=== PATIENT | female | born 1955 | race Caucasian/White ===

== ENCOUNTER 2016-12-12 10:09 | Outpatient (CLI) | payer OTHER | END 2016-12-12 10:10 | disposition home or self-care (01) | DX: D47.3 Essential (hemorrhagic) thrombocythemia (principal); R53.83 Other fatigue ==

== ENCOUNTER 2018-05-12 08:11 | Outpatient (CLI) | payer OTHER ==
[2018-05-12 09:15] LABS: ALBUMIN 3.9 g/dL (3.2-5.5); ALBUMIN/GLOBULIN RATIO 1.2 (1.0-2.2); ALKALINE PHOSPHATASE 60 IU/L (42-121); ALT ALANINE AMINOTRANSFERASE 15 IU/L (10-60); AST ASPARTATE AMINOTRANSFERASE 19 IU/L (10-42); BILIRUBIN,TOTAL 0.5 mg/dL (0.2-1.0); BUN - BLOOD UREA NITROGEN 17 mg/dL (6-20); CALCIUM 8.7 mg/dL (8.5-10.3); CARBON DIOXIDE - CO2 27 mmol/L (21-32); CHLORIDE 102 mmol/L (101-111); CHOL/HDL RATIO 3.5 (<4.4); CHOLESTEROL 166 mg/dL; CREATININE 0.7 mg/dL (0.4-1.0); GFR - MDRD 85 (>89); GLUCOSE 92 mg/dL (70-100); HDL CHOLESTEROL 48 mg/dL; LDL CHOLESTEROL,CALCULATED 102 mg/dL; LDL/HDL RATIO 2.1 (<4.4); SODIUM 135 mmol/L (135-145); TOTAL PROTEIN 7.2 g/dL (6.7-8.2); VLDL CHOLESTEROL 16 mg/dL
[2018-05-12 09:17] LABS: CRP - C-REACTIVE PROTEIN < 1.0 mg/dL (0-1.0)
[2018-05-13 13:28] LABS: HEPATITIS C ANTIBODY NON-REACTIVE (NON-REACTIVE)
[2018-05-15 00:22] LABS: SOURCE BLOOD
== END 2018-05-12 08:12 | disposition home or self-care (01) ==
LOC: LAB 08:11
PROVIDERS: ATTEND Family Medicine
DX: Z00.00 Encounter for general adult medical examination without abnormal findings (principal); D47.3 Essential (hemorrhagic) thrombocythemia; Z11.59 Encounter for screening for other viral diseases; R53.83 Other fatigue; M19.90 Unspecified osteoarthritis, unspecified site; G62.9 Polyneuropathy, unspecified
CPT/HCPCS: 36415; 80053; 80061; 81206; 83721; 84443; 85651; 86140; 86803

== ENCOUNTER 2018-11-04 09:31 | Outpatient (CLI) | payer OTHER | END 2018-11-04 09:32 | disposition home or self-care (01) | LOC: LAB 09:31 | PROVIDERS: ATTEND Family Medicine | DX: D47.3 Essential (hemorrhagic) thrombocythemia (principal) | CPT/HCPCS: 81206 ==

== ENCOUNTER 2021-08-28 14:53 | Emergency (ER) | payer OTHER ==
--- NOTE | 2021-08-28 14:59 | ED Physician Documentation ---
PD HPI LOWER EXT INJURY - Stated complaint Stated Complaint: right ankle injury - History obtained from History obtained from: Patient - History of Present Illness PD HPI LOW EXT INJURY LOCATION: Right, Ankle Type of injury: Twist (She had been sitting at her computer for few hours and got up and felt like her leg was asleep and her ankle rolled inversion with pain laterally.) Where injury occurred: Home Timing - onset: How many hours ago (1), Today Timing - details: Abrupt onset, Still present (hurting for walking) Improved by: Rest Worsened by: Moving, Other (walking) Associated symptoms: Swelling (laterally). No: Weakness, Numbness Similar symptoms before: Has not had sx before (She has been having muscle cramps in her legs intermittently and some in her arms for the past few weeks. Seen by her primary care a week ago with basic blood tests showing slightly low potassium but otherwise normal.), Other (She has had muscle cramps in her legs intermittently the last few weeks mainly at rest or sleeping. No claudication with walking.) Recently seen: Clinic Review of Systems Skin: denies: Abrasion (s), Laceration (s) Neurologic: denies: Focal weakness, Numbness PD PAST MEDICAL HISTORY - Past Medical History Cardiovascular: None - Past Surgical History Past Surgical History: No - Present Medications Home Medications: Ambulatory Orders Medication Instructions Recorded Confirmed No Known Home Medications 08/28/21 08/28/21 - Allergies Allergies/Adverse Reactions: Allergies Allergy/AdvReac Type Severity Reaction Status Date / Time No Known Drug Allergies Allergy Verified 08/28/21 14:57 - Social History Does the pt smoke?: No Smoking Status: Never smoker Does the pt drink ETOH?: Yes Does the pt have substance abuse?: No - POLST Patient has POLST: No PD ED PE NORMAL - Vitals Vital signs reviewed: Yes - General General: Alert and oriented X 3, No acute distress, Well developed/nourished - Derm Derm: Normal color, Warm and dry - Extremities Extremities: Other (The right ankle shows tenderness along the lateral malleolus in the infra malleolar area. Medial is nontender. The Achilles is firm and intact. No gross laxity on inversion stress but does cause pain.) - Neuro Neuro: Alert and oriented X 3, No motor deficit, No sensory deficit, Normal speech Results - Vitals Vitals: Vital Signs - 24 hr 08/28/21 14:57 Temperature 36.5 C Heart Rate 80 Respiratory 16 Rate Blood Pressure 139/87 H O2 Saturation 97 Oxygen O2 Source Room air - Rads (name of study) right ankle Radiology: Prelim report reviewed (no fractures), See rad report PD MEDICAL DECISION MAKING - ED course Complexity details: reviewed results, d/w patient Departure - Departure Disposition: 01 Home, Self Care Clinical Impression: Ankle sprain Qualifiers: Encounter type: initial encounter Involved ligament of ankle: anterior talofibular ligament Laterality: right Qualified Code(s): S93.491A - Sprain of other ligament of right ankle, initial encounter Condition: Stable Record reviewed to determine appropriate education?: Yes Instructions: ED Sprain Ankle W X Ray Follow-Up: MEIR FARMER MD [Primary Care Provider] - Comments: Use the ankle brace when up and around for the next 2 to 3 weeks until fully healed. There are no fracture seen on x-ray. Your ankle can heal with the support and weightbearing as tolerated. Use the crutches initially for discomfort of weightbearing and progress weightbearing and activity as tolerated. This can take 2 to 4 weeks sometimes to fully heal up back to normal. Maintain some level of support of the ankle until it feels fully healed. Ice elevate and rest your ankle often today and tomorrow for swelling. Tylenol or ibuprofen as needed for pains. Recheck if not improving over the next week or so and steadily improved over several weeks until better.
[2021-08-28 15:00] VITALS: BP 139/87
--- NOTE | 2021-08-28 15:50 | XRAY Report ---
PROCEDURE: Ankle 3 View RT INDICATIONS: Trauma TECHNIQUE: 3 views of the ankle were acquired. COMPARISON: None FINDINGS: Bones: No acutefractures or dislocations. Ankle mortise is normally aligned. No suspicious bony le sions. Soft tissues: No tibiotalar joint effusion. Achilles tendon appears normal. Moderate lateral malleo nisha soft tissue swelling. IMPRESSION: Moderate lateral malleolus soft tissue swelling. Otherwise, no acute fracture or disloca tion. If there is persistent clinical concern for a radiographically occult fracture, recommend immobilizat ion and repeat imaging in 10 to 14 days. Reviewed by: Lior Cuellar MD on 08/28/2021 3:49 PM PDT Approved by: Lior Cuellar MD on 08/28/2021 3:49 PM PDT Station ID: [id number]
== END 2021-08-28 15:51 | disposition home or self-care (01) ==
LOC: ED 14:53
DX: S93.491A Sprain of other ligament of right ankle, initial encounter (principal); X50.1XXA Overexertion from prolonged static or awkward postures, initial encounter
CPT/HCPCS: 99282; 99283